=== PATIENT | female | born 1960 | race Caucasian/White ===

== ENCOUNTER 2024-01-12 09:30 | Day surgery (SDC) | payer BC ==
[~2024-01-12 09:30] MED LIST: LIDOCAINE 1% (10MG/ML) FOR IV START INTRADERMA PRN; ONDANSETRON 4 MG/2 ML VIAL IVP PRN
[2024-01-12] MEDS: IV FLUID CONTINUATION 1,000 ML IV ONE (09:56)
[2024-01-12] MEDS: LACTATED RINGERS 1,000 ML IV SCH (09:57)
[2024-01-12 10:09] VITALS: TEMP 97.1
[2024-01-12] MEDS ORDERED: PROPOFOL 10 MG/ML 20 ML VIAL IV ONE (10:54)
[2024-01-12] MEDS ORDERED: LIDOCAINE 1% INJ 10MG/ML (20 ML MDV) ONE (10:54)
--- NOTE | 2024-01-12 10:58 | P.GSHP ---
History of Present Illness H&P Date: 01/12/24 Chief Complaint: screening colonoscopy 's is a 63-year-old female who presents today for screening colonoscopy. Patient denies a significant GI complaints. Past Medical History Past Medical History: Hyperlipidemia, Osteoarthritis (OA) Additional Past Medical History / Comment(s): meniere's disease- takes lasix and K+ to control. History of Any Multi-Drug Resistant Organisms: None Reported Past Surgical History: Joint Replacement Additional Past Surgical History / Comment(s): rt hip replaced. Past Anesthesia/Blood Transfusion Reactions: No Reported Reaction Smoking Status: Never smoker - Past Family History Sister(s) Family Medical History: Cancer Additional Family Medical History / Comment(s): breast cancer Medications and Allergies Home Medications Medication Instructions Recorded Confirmed Type Atorvastatin [Lipitor] 10 mg PO HS 01/10/24 01/10/24 History Furosemide [Lasix] 20 mg PO DAILY 01/10/24 01/10/24 History Potassium Chloride [Klor-Con 8] 8 meq PO BID 01/10/24 01/10/24 History Unk Vitamin C 1 tab PO DAILY 01/10/24 01/10/24 History Unk Vitamin D3 1 tab PO DAILY 01/10/24 01/10/24 History Allergies Allergy/AdvReac Type Severity Reaction Status Date / Time No Known Allergies Allergy Verified 01/12/24 10:07 Surgical - Exam Vital Signs Temp Pulse Resp BP Pulse Ox 97.1 F L 69 16 120/75 98 01/12/24 10:08 01/12/24 10:08 01/12/24 10:08 01/12/24 10:08 01/12/24 10:08 - General well developed, well nourished, no distress - Eyes PERRL - ENT normal pinna - Neck no masses - Respiratory normal expansion - Cardiovascular Rhythm: regular - Abdomen Abdomen: soft, non tender Assessment and Plan Assessment: we'll perform screening colonoscopy.
--- NOTE | 2024-01-12 11:14 | P.OP ---
Date of Procedure: 01/12/24 Preoperative Diagnosis: screening colonoscopy Postoperative Diagnosis: normal colon Procedure(s) Performed: acolonoscopy Anesthesia: MAC Surgeon: Amol Mcfarland Pathology: none sent Condition: stable Disposition: PACU Description of Procedure: npatient's placed on the endoscopy table in the lateral position. She received IV sedation. Digital rectal exam performed. This revealed no abnormalities. Flexible colonoscope was then placed patient anus and passed throughout the entire colon. The ileocecal valve was visualized. Cecum, ascending and transverse colon appeared normal. The descending and sigmoid colon appeared normal. Scope was then brought back the rectum and this was normal. The scope was then withdrawn for patient.
[2024-01-12 11:31] VITALS: BP 98/47; PULSE 67; RESP 17
== END 2024-01-12 12:15 | disposition home or self-care (01) ==
LOC: ORWHC2ENDO 09:30
PROVIDERS: ATTEND Surgery
DX: Z12.11 Encounter for screening for malignant neoplasm of colon (principal); E78.5 Hyperlipidemia, unspecified; M19.90 Unspecified osteoarthritis, unspecified site; G71.29 Other congenital myopathy; Z96.641 Presence of right artificial hip joint; Z79.899 Other long term (current) drug therapy; Z98.890 Other specified postprocedural states
CPT/HCPCS: 45378; J2001; J2704

== ENCOUNTER 2024-03-24 17:34 | Emergency (ER) | payer BC ==
[2024-03-24] MEDS ORDERED: ACETAMINOPHEN TAB 325 MG TAB ONE (18:10)
--- NOTE | 2024-04-16 17:16 | CT ---
Patient Unique Kam ID [id number] Order # EXAMINATION TYPE: CT brain francisca mena con DATE OF EXAM: 03/24/2024 COMPARISON: No comparison available on downtime PACS. HISTORY: Fall, neck pain CT DLP: 1290 mGycm, Automated exposure control for dose reduction was used. CONTRAST: Patient injected with 0 mL of Isovue 300. CT of the brain is performed utilizing 3 mm thick sections through the posterior fossa and 3 mm thick sections through the remaining calvarium. Study is performed within 24 hours of arrival to the hospital. No abnormal hyperdensity is present to suggest an acute intracranial hemorrhage. No mass lesion is evident. No acute infarcts are evident. Ventricles and sulci are appropriate for the patient age. Soft tissue swelling is over the left occipital region. No underlying fracture is evident. Fluid levels within the bilateral maxillary sinuses. Correlate for acute maxillary sinusitis. IMPRESSIONS: 1. No acute intracranial process. Follow-up MRI can be performed as clinically indicated. 2. Superficial soft tissue swelling left occipital region. 3. Clinical correlation recommended for bilateral maxillary acute sinusitis. CT cervical spine. COMPARISON: None CT of the cervical spine is performed in the axial plane at 2 mm thick sections. Reconstructed image s in the coronal, and sagittal plane are reviewed on the computer. No acute fractures are evident. Straightening of the vertebral alignment. Side bending is present. There is loss of disc height and degenerative disc changes present C4-5, C5-6, C6-7. Vertebral body heights are preserved. No spinal canal stenosis is evident. History vertebral body spurring is present C4-5 C5-6 and C6-7. N o spinal canal stenosis is evident. Anterior vertebral body spurring is present C4-C7. Prevertebral s pace appears normal Uncovertebral joint hypertrophy C3-4 is causing right foraminal stenosis. There is severe left and m oderate right foraminal narrowing 5 from uncovertebral joint hypertrophy. Severe bilateral foraminal stenosis present C5-6 and C6-7. IMPRESSION: 1. No acute osseous abnormality cervical spine. 2. Advanced degenerative disc changes and spurring with uncovertebral joint hypertrophy mid cervical spine discussed above
== END 2024-03-24 20:05 | disposition home or self-care (01) ==
LOC: EC 17:34
CPT/HCPCS: 70450; 72125; 99284